=== PATIENT | female | born 1945 | race African-American/Black ===

== ENCOUNTER → 2021-12-01 09:39 | Outpatient (CLI) | payer MEDICARE, BC, SELFPAY | PROVIDERS: PCP Family Medicine; Visit Provider Ophthalmology | DX: Z01.812 Encounter for preprocedural laboratory examination (principal); Z11.52 Encounter for screening for COVID-19 | CPT/HCPCS: C9803; U0003; U0005 ==

== ENCOUNTER 2021-12-02 07:41 | Day surgery (SDC) | payer MEDICARE, BC, SELFPAY ==
[2021-12-01 09:03] VITALS: BMI 28.3
[2021-12-02] VITALS (10 sets, daily range): BP systolic 100–135; BP diastolic 62–79; PULSE 61–86; RESP 16–18; TEMP 36.2–36.8; O2SAT 97–100
[2022-07-23 10:57] LABS: POC Glucose,Bedside 128 (70-110)
== END 2021-12-02 10:49 | disposition home or self-care (01) ==
LOC: OR 07:43
PROVIDERS: PCP Family Medicine; Visit Provider Ophthalmology
DX: H25.813 Combined forms of age-related cataract, bilateral (principal); H59.211 Accidental puncture and laceration of right eye and adnexa during an ophthalmic procedure; E11.9 Type 2 diabetes mellitus without complications; H53.149 Visual discomfort, unspecified; E78.5 Hyperlipidemia, unspecified; Z80.9 Family history of malignant neoplasm, unspecified; I10 Essential (primary) hypertension; Z87.891 Personal history of nicotine dependence; Z79.82 Long term (current) use of aspirin; Z79.84 Long term (current) use of oral hypoglycemic drugs; Z79.899 Other long term (current) drug therapy
CPT/HCPCS: 66984; 82962; V2632

== ENCOUNTER → 2021-12-13 09:24 | Outpatient (CLI) | payer MEDICARE, BC, SELFPAY | PROVIDERS: Visit Provider Ophthalmology | DX: Z01.812 Encounter for preprocedural laboratory examination (principal); Z11.52 Encounter for screening for COVID-19 | CPT/HCPCS: C9803; U0003; U0005 ==

== ENCOUNTER 2021-12-16 07:29 | Day surgery (SDC) | payer MEDICARE, BC, SELFPAY ==
[2021-12-10 10:45] VITALS: BMI 28.3
[2021-12-16] VITALS (7 sets, daily range): BP systolic 117–134; BP diastolic 69–81; PULSE 62–98; RESP 16–20; TEMP 36.1–36.6; O2SAT 98–100
[2022-07-23 10:57] LABS: POC Glucose,Bedside 122 (70-110)
== END 2021-12-16 11:14 | disposition home or self-care (01) ==
LOC: OR 07:31
PROVIDERS: PCP Family Medicine; Visit Provider Ophthalmology
DX: H25.813 Combined forms of age-related cataract, bilateral (principal); E11.9 Type 2 diabetes mellitus without complications; H53.149 Visual discomfort, unspecified; I10 Essential (primary) hypertension; E78.5 Hyperlipidemia, unspecified; Z83.3 Family history of diabetes mellitus; Z82.49 Family history of ischemic heart disease and other diseases of the circulatory system; Z79.82 Long term (current) use of aspirin; Z79.899 Other long term (current) drug therapy
CPT/HCPCS: 66984; 82962; V2632

== ENCOUNTER → 2022-03-14 09:36 | Outpatient (CLI) | payer MEDICARE, SELFPAY | PROVIDERS: PCP Family Medicine; Visit Provider Ophthalmology | DX: Z01.812 Encounter for preprocedural laboratory examination (principal); Z20.822 Contact with and (suspected) exposure to COVID-19 | CPT/HCPCS: C9803; U0003; U0005 ==

== ENCOUNTER 2022-03-17 09:00 | Day surgery (SDC) | payer MEDICARE, SELFPAY ==
[2022-03-12 13:09] VITALS: BMI 27.1
[2022-03-17 09:43] VITALS: BP 126/77; PULSE 66; RESP 16; TEMP 36.6; O2SAT 97
[2022-03-17 09:48] LABS: POC Glucose,Bedside 127 (70-110)
[2022-03-17 10:15] VITALS: BP 133/78; PULSE 63; RESP 16; TEMP 36.9; O2SAT 99
== END 2022-03-17 10:16 | disposition home or self-care (01) ==
LOC: OUTP 09:02
PROVIDERS: PCP Family Medicine; Visit Provider Ophthalmology
PROC: (CPT 66821; principal; 2022-03-17 10:00)
DX: H26.491 Other secondary cataract, right eye (principal); Z96.1 Presence of intraocular lens; H02.831 Dermatochalasis of right upper eyelid; H02.834 Dermatochalasis of left upper eyelid; E11.9 Type 2 diabetes mellitus without complications; I10 Essential (primary) hypertension; Z83.3 Family history of diabetes mellitus; Z82.49 Family history of ischemic heart disease and other diseases of the circulatory system; Z80.9 Family history of malignant neoplasm, unspecified; Z79.82 Long term (current) use of aspirin; Z79.84 Long term (current) use of oral hypoglycemic drugs; Z79.899 Other long term (current) drug therapy
CPT/HCPCS: 66821; 82962